=== PATIENT | female | born 1995 | race Caucasian/White ===

== ENCOUNTER 2018-01-28 12:35 | Emergency (ER) | payer OTHER, SELFPAY ==
[2018-01-28 12:51] VITALS: BP 106/55; PULSE 60; RESP 16; TEMP 37.1; O2SAT 100; BMI 25.8
--- NOTE | 2018-01-28 14:17 | ED.DENTAL ---
HPI - Dental/Oral <KALYAN Coley - Last Filed: 01/28/18 23:01> General Chief complaint: Dental/Oral Stated complaint: THINKS TMJ Time Seen by Provider: 01/28/18 14:17 Source: patient Mode of arrival: ambulatory Limitations: no limitations History of Present Illness HPI Narrative: Healthy 22-year-old female here for complaint of pain into her left TMJ area with some popping over the past couple of weeks. She denies any trauma to the area. She reports increased pain with frequent motion of the jaw or with opening her jaw widely. She is currently in the area for a short. And is going back home to [place] tomorrow. She states she does have a dentist. She denies any fevers or chills. No other concerns or complaints. Review of Systems <KALYAN Coley - Last Filed: 01/28/18 23:01> Constitutional Denies chills, Denies fever(s), Denies lethargy and Denies weakness Eyes Denies change in vision, Denies eye discharge, Denies irritation and Denies loss of vision ENT Comments: Pain to left TMJ area Cardiovascular Denies chest pain, Denies irregular heart rhythm, Denies lightheadedness, Denies palpitations, Denies dyspnea, Denies dyspnea on exertion and Denies orthopnea Respiratory Denies cough, Denies dyspnea, Denies dyspnea on exertion and Denies wheezing Gastrointestinal Gastrointestinal: Denies abdominal pain, Denies change in bowel habits, Denies diarrhea, Denies nausea and Denies vomiting Genitourinary Denies hematuria, Denies flank pain, Denies urinary incontinence and Denies urinary urgency Musculoskeletal Denies back pain, Denies muscle weakness, Denies numbness and Denies tingling Integumentary/Breasts Denies pruritus, Denies erythema, Denies rash and Denies wounds Neurologic Denies confusion, Denies loss of vision, Denies numbness, Denies tingling and Denies weakness Psychiatric Denies anxiety, Denies confusion, Denies depression, Denies homicidal ideation and Denies suicidal ideation Endocrine Denies palpitations Hematologic/Lymphatic Denies easy bruising Allergic/Immunologic Denies wheezing Exam <KALYAN Coely - Last Filed: 01/28/18 23:01> Initial Vital Signs Initial Vital Signs: Vital Signs Temperature 98.8 F 01/28/18 12:51 Pulse Rate 60 01/28/18 12:51 Respiratory Rate 16 01/28/18 12:51 Blood Pressure 106/55 L 01/28/18 12:51 Pulse Oximetry 100 01/28/18 12:51 Const General: cooperative and well developed Nutritional Appearance: well nourished Orientation: alert, awake, oriented x3 and not confused [facility] Head: normal to inspection, normocephalic, No temporal artery tenderness and No periorbital ecchymosis Nose: TMJ tender (Left TMJ tenderness) and TMJ clicking Mouth: oral mucosae normal, oropharynx normal and moist mucous membranes Eyes Conjunctivae: conjunctivae normal Sclera: sclerae normal Pupils: PERRL EOM: EOM intact bilaterally Resp Effort & Inspection: normal respiratory effort, able to speak in complete sentences, no respiratory distress and no use of accessory muscles Auscultation: clear to auscultation bilaterally, no rales, no rhonchi and no wheezes Cardio Rate: regular rate Rhythm: regular rhythm Heart Sounds: no click, no gallops, no murmurs and no rubs Skin General: no rashes or lesions noted, No jaundice and No petechiae Neuro General: alert, oriented x3, gait normal and no focal motor deficits Speech: speech normal <DO Zeinab Carlos Last Filed: 01/29/18 07:22> Initial Vital Signs Initial Vital Signs: Vital Signs Temperature 98.8 F 01/28/18 12:51 Pulse Rate 60 01/28/18 12:51 Respiratory Rate 16 01/28/18 12:51 Blood Pressure 106/55 L 01/28/18 12:51 Pulse Oximetry 100 01/28/18 12:51 Course <KALYAN Coley - Last Filed: 01/28/18 23:01> Vital Signs - 8 hr 01/28/18 12:51 Temperature 98.8 F Pulse Rate 60 Respiratory Rate 16 Blood Pressure 106/55 L Pulse Oximetry 100 <DO Zeinba Carlos Last Filed: 01/29/18 07:22> Vital Signs - 8 hr 01/28/18 12:51 Temperature 98.8 F Pulse Rate 60 Respiratory Rate 16 Blood Pressure 106/55 L Pulse Oximetry 100 MDM - Dental/Oral <KALYAN Coley - Last Filed: 01/28/18 23:01> MDM Narrative Medical decision making narrative: Patient with tenderness to palpation to the left TMJ area. She also has some popping while opening her jaw fully. Signs and symptoms presents as acute TMJ disorder. Eqgs-rnc-ovjstuh ibuprofen for any discomfort. She is instructed not to chew gum or ice and restrict hard chewy objects in her diet. Follow up with her dentist when she returns home. For any worsening symptoms return to the emergency room. Discharge Plan Departure Patient Disposition: Home, Self-Care Clinical Impression: TMJ (temporomandibular joint disorder) Discharge Date/Time: 01/28/18 15:03 Interventions: ED Discharge Assessment Last Done: 01/28/18 15:02 Instructions: DI for Temporomandibular Disorder Activity Restrictions/Additional Instructions: Signs and symptoms presents as acute TMJ disorder. Use korn-vje-iqrpuda ibuprofen as needed for any discomfort. Limit actions and cause pain into the area such as chewing gum chewing on ice or hard chewy items in the diet. Follow up with her dentist when you return home. For any worsening symptoms return to the emergency room. Referrals: [facility] [Provider Group] <Johnathon Dubois, - Last Filed: 01/29/18 07:22> [facility] Brayden Attestation: I was available for consultation during this patient's emergency department encounter
--- NOTE | 2018-01-28 14:20 | ED_ITS ---
HPI - Dental/Oral <KALYAN Coley - Last Filed: 01/28/18 23:01> General Chief complaint: Dental/Oral Stated complaint: THINKS TMJ Time Seen by Provider: 01/28/18 14:17 Source: patient Mode of arrival: ambulatory Limitations: no limitations History of Present Illness HPI Narrative: Healthy 22-year-old female here for complaint of pain into her left TMJ area with some popping over the past couple of weeks. She denies any trauma to the area. She reports increased pain with frequent motion of the jaw or with opening her jaw widely. She is currently in the area for a short. And is going back home to [place] tomorrow. She states she does have a dentist. She denies any fevers or chills. No other concerns or complaints. Review of Systems <KALYAN Coley - Last Filed: 01/28/18 23:01> Constitutional Denies chills, Denies fever(s), Denies lethargy and Denies weakness Eyes Denies change in vision, Denies eye discharge, Denies irritation and Denies loss of vision ENT Comments: Pain to left TMJ area Cardiovascular Denies chest pain, Denies irregular heart rhythm, Denies lightheadedness, Denies palpitations, Denies dyspnea, Denies dyspnea on exertion and Denies orthopnea Respiratory Denies cough, Denies dyspnea, Denies dyspnea on exertion and Denies wheezing Gastrointestinal Gastrointestinal: Denies abdominal pain, Denies change in bowel habits, Denies diarrhea, Denies nausea and Denies vomiting Genitourinary Denies hematuria, Denies flank pain, Denies urinary incontinence and Denies urinary urgency Musculoskeletal Denies back pain, Denies muscle weakness, Denies numbness and Denies tingling Integumentary/Breasts Denies pruritus, Denies erythema, Denies rash and Denies wounds Neurologic Denies confusion, Denies loss of vision, Denies numbness, Denies tingling and Denies weakness Psychiatric Denies anxiety, Denies confusion, Denies depression, Denies homicidal ideation and Denies suicidal ideation Endocrine Denies palpitations Hematologic/Lymphatic Denies easy bruising Allergic/Immunologic Denies wheezing Exam <KALYAN Coley - Last Filed: 01/28/18 23:01> Initial Vital Signs Initial Vital Signs: Vital Signs Temperature 98.8 F 01/28/18 12:51 Pulse Rate 60 01/28/18 12:51 Respiratory Rate 16 01/28/18 12:51 Blood Pressure 106/55 L 01/28/18 12:51 Pulse Oximetry 100 01/28/18 12:51 Const General: cooperative and well developed Nutritional Appearance: well nourished Orientation: alert, awake, oriented x3 and not confused [facility] Head: normal to inspection, normocephalic, No temporal artery tenderness and No periorbital ecchymosis Nose: TMJ tender (Left TMJ tenderness) and TMJ clicking Mouth: oral mucosae normal, oropharynx normal and moist mucous membranes Eyes Conjunctivae: conjunctivae normal Sclera: sclerae normal Pupils: PERRL EOM: EOM intact bilaterally Resp Effort & Inspection: normal respiratory effort, able to speak in complete sentences, no respiratory distress and no use of accessory muscles Auscultation: clear to auscultation bilaterally, no rales, no rhonchi and no wheezes Cardio Rate: regular rate Rhythm: regular rhythm Heart Sounds: no click, no gallops, no murmurs and no rubs Skin General: no rashes or lesions noted, No jaundice and No petechiae Neuro General: alert, oriented x3, gait normal and no focal motor deficits Speech: speech normal <DO Zeinab Carlos Last Filed: 01/29/18 07:22> Initial Vital Signs Initial Vital Signs: Vital Signs Temperature 98.8 F 01/28/18 12:51 Pulse Rate 60 01/28/18 12:51 Respiratory Rate 16 01/28/18 12:51 Blood Pressure 106/55 L 01/28/18 12:51 Pulse Oximetry 100 01/28/18 12:51 Course <KALYAN Coley - Last Filed: 01/28/18 23:01> Vital Signs - 8 hr 01/28/18 12:51 Temperature 98.8 F Pulse Rate 60 Respiratory Rate 16 Blood Pressure 106/55 L Pulse Oximetry 100 <DO Zeinab Carlos Last Filed: 01/29/18 07:22> Vital Signs - 8 hr 01/28/18 12:51 Temperature 98.8 F Pulse Rate 60 Respiratory Rate 16 Blood Pressure 106/55 L Pulse Oximetry 100 MDM - Dental/Oral <KALYAN Coley - Last Filed: 01/28/18 23:01> MDM Narrative Medical decision making narrative: Patient with tenderness to palpation to the left TMJ area. She also has some popping while opening her jaw fully. Signs and symptoms presents as acute TMJ disorder. Tfzn-piq-uvkxycb ibuprofen for any discomfort. She is instructed not to chew gum or ice and restrict hard chewy objects in her diet. Follow up with her dentist when she returns home. For any worsening symptoms return to the emergency room. Discharge Plan Departure Patient Disposition: Home, Self-Care Clinical Impression: TMJ (temporomandibular joint disorder) Discharge Date/Time: 01/28/18 15:03 Interventions: ED Discharge Assessment Last Done: 01/28/18 15:02 Instructions: DI for Temporomandibular Disorder Activity Restrictions/Additional Instructions: Signs and symptoms presents as acute TMJ disorder. Use [id number]-itc-upwxazr ibuprofen as needed for any discomfort. Limit actions and cause pain into the area such as chewing gum chewing on ice or hard chewy items in the diet. Follow up with her dentist when you return home. For any worsening symptoms return to the emergency room. Referrals: [facility] [Provider Group] <Johnathon Dubois, - Last Filed: 01/29/18 07:22> [facility] Brayden Attestation: I was available for consultation during this patient's emergency department encounter
[2018-01-28 14:51] VITALS: BP 106/63; PULSE 55; RESP 16; O2SAT 99
== END 2018-01-28 15:03 | disposition home or self-care (01) ==
PROVIDERS: Emergency Provider Nurse Practitioner Family
DX: M26.609 Unspecified temporomandibular joint disorder, unspecified side (principal)
CPT/HCPCS: 99282

== ENCOUNTER 2019-01-04 20:27 | Emergency (ER) | payer OTHER, SELFPAY ==
[2019-01-04 20:32] VITALS: BP 118/69; PULSE 60; RESP 18; TEMP 36.3; O2SAT 100
[2019-01-04 20:50] VITALS: BP 108/53; PULSE 55; O2SAT 98
--- NOTE | 2019-01-04 21:24 | ED.WOUNDLAC ---
HPI - Wound/Laceration General Chief Complaint: Wound/Laceration Stated Complaint: LT THUMB CUT Time Seen by Provider: 01/04/19 20:28 Source: patient Mode of arrival: ambulatory Limitations: no limitations History of Present Illness HPI narrative: 23-year-old female nonsmoker, otherwise healthy with up-to-date tetanus presents with a 1.5 cm laceration on her left thumb suffered just prior to arrival when she was cutting an avocado with a new, sharp knife. She has full range of motion and denies any numbness, tingling or weakness. Review of Systems Constitutional Denies chills, Denies fever(s), Denies lethargy and Denies weakness Eyes Denies change in vision, Denies eye discharge, Denies irritation and Denies loss of vision ENT Ears, Nose, Mouth, and Throat: Denies change in voice, Denies neck pain and Denies sore throat Cardiovascular Denies chest pain, Denies irregular heart rhythm, Denies lightheadedness, Denies palpitations, Denies dyspnea, Denies dyspnea on exertion and Denies orthopnea Respiratory Denies cough, Denies dyspnea, Denies dyspnea on exertion and Denies wheezing Gastrointestinal Gastrointestinal: Denies abdominal pain, Denies change in bowel habits, Denies diarrhea, Denies nausea and Denies vomiting Genitourinary Denies hematuria, Denies flank pain, Denies urinary incontinence and Denies urinary urgency Musculoskeletal Denies neck pain Integumentary/Breasts Denies pruritus, Denies erythema, Denies rash and Reports wounds Neurologic Denies confusion, Denies loss of vision and Denies weakness Psychiatric Denies anxiety, Denies confusion, Denies depression, Denies homicidal ideation and Denies suicidal ideation Endocrine Denies palpitations Hematologic/Lymphatic Denies easy bruising Allergic/Immunologic Denies wheezing [facility] Social History Smoking Status: Never smoker Social History Smoking Status: Never smoker Exam Narrative Exam Narrative: GEN: AOx3 and in mild distress EYES: Pupils are equal, round, and reactive to light and accommodation. Extraoccular muscles are intact bilaterally. There is no subconjunctival hemorrhage or exudate. CHEST: Lungs are clear to auscultation bilaterally and free of wheezes, rales, or rhonchi. Heart rate is regular rhythm, there are no murmurs, clicks, rubs, or gallops. There is no chest wall tenderness. ABD: Abdomen is soft and nontender. There is no guarding or rebound. Bowel sounds are normal in all 4 quadrants. There is no mass or organomegaly. EXT: Full painless ROM of all extremities with no loss of sensation or strength. SKIN: 1.5 cm laceration with minimal bleeding left thumb Warm, pink, and dry. No erythema or rash Initial Vital Signs Initial Vital Signs: Vital Signs Temperature 97.3 F L 01/04/19 20:32 Pulse Rate 60 01/04/19 20:32 Respiratory Rate 18 01/04/19 20:32 Blood Pressure 118/69 01/04/19 20:32 Pulse Oximetry 100 01/04/19 20:32 Procedures Laceration Repair Laceration 1: Site: hand Side (If applicable): left Size (cm): 1.5 Description: linear Depth: simple, single layer Local Anesthetic: lidocaine 1% and with bicarb Amount of anesthesia used (mL): 2 Pre-repair: wound explored Skin layer closed with: nylon Size (cm): 5-0 Number of sutures: 4 Technique: simple, interrupted Course Vital Signs - 8 hr 01/04/19 20:32 01/04/19 20:50 Temperature 97.3 F L Pulse Rate 60 55 L Respiratory Rate 18 Blood Pressure 118/69 108/53 L Pulse Oximetry 100 98 Discharge Plan Departure Patient Disposition: Home Clinical Impression: Laceration Discharge Date/Time: 01/04/19 20:50 Interventions: ED Discharge Assessment Last Done: 01/04/19 20:50 Instructions: DI for Laceration Repair Activity Restrictions/Additional Instructions: Please keep the wound clean and dry to the best of your ability. Please monitor for signs of infection such as redness to the skin or increasing pain. Have the sutures removed by your doctor in about 7 days. If you are unable to get into your doctor, we would be happy to remove the sutures in that same timeframe.
== END 2019-01-04 20:50 | disposition home or self-care (01) ==
PROVIDERS: Emergency Provider Emergency Medicine
DX: S61.012A Laceration without foreign body of left thumb without damage to nail, initial encounter (principal); W26.0XXA Contact with knife, initial encounter
CPT/HCPCS: 12001; 99282; 99283